=== PATIENT | male | born 1985 | race Two or more races ===

== ENCOUNTER 2021-06-12 12:21 | Emergency (ER) | payer OTHER ==
[2021-06-12] MEDS ORDERED: Alteplase 81 MG in Infusion 1 VIAL IV ONE (14:45)
== END 2021-06-12 15:23 ==
LOC: JD.ED 12:21
DX: I63.9 Cerebral infarction, unspecified (principal); Z72.0 Tobacco use; Z20.822 Contact with and (suspected) exposure to COVID-19
CPT/HCPCS: 36415; 37195; 70450; 70496; 70498; 71045; 80053; 80306; 81003; 82947; 84484; 85025; 85610; 85730; 87635; 93005; 96374; 99285; J2997; 93010; U0002

== ENCOUNTER 2022-04-30 12:02 | Emergency (ER) | payer SELFPAY | END 2022-04-30 13:10 | disposition home or self-care (01) | LOC: JD.ED 12:02 | DX: F11.10 Opioid abuse, uncomplicated (principal); I25.2 Old myocardial infarction; Z72.0 Tobacco use; Z86.73 Personal history of transient ischemic attack (TIA), and cerebral infarction without residual deficits | CPT/HCPCS: 99282; 99283 ==

== ENCOUNTER 2022-07-18 13:28 | Emergency (ER) | payer OTHER ==
[2022-07-18] MEDS ORDERED: Ondansetron 4 MG Tab.DIS PO ONE (14:40)
== END 2022-07-18 17:25 | disposition home or self-care (01) ==
LOC: MERGE 13:28 → JD.ED 13:28
DX: F19.10 Other psychoactive substance abuse, uncomplicated (principal); Z72.0 Tobacco use; Z86.73 Personal history of transient ischemic attack (TIA), and cerebral infarction without residual deficits
CPT/HCPCS: 36415; 80053; 80143; 80179; 80306; 80307; 85025; 93005; 99283; A9270; 93010

== ENCOUNTER 2022-08-30 16:21 | Emergency (ER) | payer SELFPAY ==
[2022-08-30] MEDS ORDERED: Ondansetron 4 MG/2 ML SDV IVPUSH ONE (16:37)
[2022-08-30] MEDS ORDERED: Sodium Chloride 0.9% 10 ML Syringe FLUSH PRN (16:37)
[2022-08-30] MEDS ORDERED: Sodium Chloride 0.9% 1,000 ML IV SCH (16:45)
[2022-08-30 17:22] LABS: BASOPHILS ABSOLUTE AUTO 0.02 K/mm3 (0.01-0.08); BASOPHILS PERCENT AUTO 0.3 % (0.1-1.2); EOSINOPHILS ABSOLUTE AUTO 0.14 K/mm3 (0.04-0.54); EOSINOPHILS PERCENT AUTO 1.8 (0.8-7.0); HEMATOCRIT 40.2 % (40.1-51.0); HEMOGLOBIN 14.3 gm/dl (13.7-17.5); IMMATURE GRAN ABSOLUTE AUTO 0.03 K/mm3 (0.00-0.10); IMMATURE GRAN PERCENT AUTO 0.4 % (<=1.0); LYMPHOCYTES ABSOLUTE AUTO 1.12 K/mm3 (1.32-3.57); LYMPHOCYTES PERCENT AUTO 14.6 % (21.8-53.1); MEAN CORPUSCULAR HEMOGLOBIN 30.2 pg (25.7-32.2); MEAN CORPUSCULAR HGB CONC 35.6 g/dl (32.2-35.5); MEAN CORPUSCULAR VOLUME 84.8 fl (79.0-92.2); MEAN PLATELET VOLUME 9.9 fl (9.4-12.3); MONOCYTES ABSOLUTE AUTO 0.63 K/mm3 (0.30-0.82); MONOCYTES PERCENT AUTO 8.2 % (5.3-12.2); NEUTROPHILS ABSOLUTE AUTO 5.74 K/mm3 (1.78-5.38); NEUTROPHILS PERCENT AUTO 74.7 % (34.0-67.9); PLATELET COUNT,PLT 307 K/mm3 (163-337); RED BLOOD CELL COUNT 4.74 M/mm3 (4.63-6.08); WHITE BLOOD CELL COUNT,WBC 7.68 K/mm3 (4.23-9.07)
[2022-08-30 17:35] LABS: A/G RATIO 0.9 (1-2); ALANINE AMINOTRANSFERASE,ALT 190 U/L (16-63); ALBUMIN 3.4 g/dl (3.4-5.0); ALKALINE PHOSPHATASE 99 U/L (46-116); ANION GAP 13.7 (5-15); ASPARTATE AMNIOTRANSFERASE,AST 103 U/L (15-37); BILIRUBIN TOTAL 0.4 mg/dL (0.2-1.0); BLOOD UREA NITROGEN,BUN 10 mg/dL (7-18); BUN/CREATININE RATIO 11.1 (14-18); CALCIUM 8.4 mg/dL (8.5-10.1); CARBON DIOXIDE,CO2 25 mEq/L (21-32); CHLORIDE,CL 105 mEq/L (98-107); CREATININE 0.9 mg/dL (0.7-1.3); ESTIMATED GFR 112 mL/min (>60); GLUCOSE RANDOM 121 mg/dL (70-99); POTASSIUM,K 3.7 mEq/L (3.5-5.1); PROTEIN TOTAL,TP 7.4 g/dl (6.4-8.2); SODIUM,NA 140 mEq/L (136-145)
[2022-08-30 19:01] LABS: BARBITURATE SCREEN,URINE NEGATIVE (CUTOFF=200); BENZODIAZEPINES SCREEN,URINE NEGATIVE (CUTOFF=150); BUPRENORPHINE SCREEN,URINE NEGATIVE (CUTOFF=10); METHADONE SCREEN, URINE NEGATIVE (CUT0FF=200); METHAMPHETAMINES SCREEN, URINE PRESUMPTIVE POSITIVE (CUTOFF=500); OXYCODONE SCREEN,URINE NEGATIVE (CUT0FF=100); PROPOXYPHENE SCREEN,URINE NEGATIVE (CUTOFF=300); THC SCREEN,URINE 20 NG/ML NEGATIVE (CUTOFF=50)
[2022-08-30 19:03] LABS: AMPHETAMINES SCREEN, URINE PRESUMPTIVE POSITIVE (CUTOFF=500)
== END 2022-08-30 20:12 | disposition home or self-care (01) ==
LOC: JD.ED 16:21
DX: T40.411A Poisoning by fentanyl or fentanyl analogs, accidental (unintentional), initial encounter (principal); I25.2 Old myocardial infarction
CPT/HCPCS: 36415; 80053; 80306; 80307; 85025; 96360; 96361; 99284; J7030